=== PATIENT | female | born 1935 | race Caucasian/White ===

== ENCOUNTER 2016-12-17 13:30 | Outpatient (CLI) ==
[2014-04-24 19:45] VITALS: BMI 52.8
== END 2016-12-17 13:31 ==
LOC: AMBL 13:30
PROVIDERS: ATTEND Emergency Medicine
DX: M54.6 Pain in thoracic spine (principal); Z96.643 Presence of artificial hip joint, bilateral; Z98.890 Other specified postprocedural states